=== PATIENT | female | born 1940 ===

== ENCOUNTER 2019-08-06 07:56 | Outpatient (CLI) | payer MEDICARE, MEDICAID ==
[~2019-08-06] VITALS: Ht 139.7 cm; Wt 112.4 kg
[2019-08-06] MEDS ORDERED: MENT118G TP (10:38)
[2019-08-06] MEDS ORDERED: ONDN4T PEG (10:38)
[2019-08-06] MEDS ORDERED: AMLO5TAB4 PEG (10:38)
[2019-08-06] MEDS ORDERED: MELO15TA14 PEG (10:38)
[2019-08-06] MEDS ORDERED: METO5TAB75 PEG (10:38)
[2019-08-06] MEDS ORDERED: CETI10TA20 PEG (10:38)
[2019-08-06] MEDS ORDERED: MICO14CR TP (10:38)
[2019-08-06] MEDS ORDERED: POTA40LI11 PEG (10:38)
[2019-08-06] MEDS ORDERED: MIRT15TA PEG (10:38)
[2019-08-06] MEDS ORDERED: HYDR-4196 PEG (10:38)
[2019-08-06] MEDS ORDERED: HYDR28.480 TP (10:38)
[2019-08-06] MEDS ORDERED: POLY17PO6 PEG (10:38)
[2019-08-06] MEDS ORDERED: MAGN400O7 PEG (10:38)
[2019-08-06] MEDS ORDERED: FLUT9.9S NS (10:38)
[2019-08-06] MEDS ORDERED: OXYM15MI4 NS (10:38)
[2019-08-06] MEDS ORDERED: HYOS0.1295 PO ×2 (10:38)
[2019-08-06] MEDS ORDERED: LOSA1TAB15 PEG (10:38)
[2019-08-06] MEDS ORDERED: LIDO30CR44 TP (10:38)
[2019-08-06] MEDS ORDERED: SCOP1PAT11 TD (10:38)
[2019-08-06] MEDS ORDERED: [UNRECOGNIZED DRUG - CODE] PEG (10:38)
== END 2019-08-06 10:44 | disposition home or self-care (01) ==
LOC: PREOP 07:56
PROVIDERS: ATTEND Specialist
DX: Z01.818 Encounter for other preprocedural examination (principal)